=== PATIENT | male | born 1990 | race Caucasian/White ===

== ENCOUNTER 2021-03-18 11:01 | Emergency (ER) | payer OTHER, BC, SELFPAY ==
--- NOTE | ~2021-03-18 | CT_ITS ---
EXAMINATION: CT ABDOMEN AND PELVIS WITH CONTRAST CLINICAL INFORMATION: Lower abdominal pain radiating to right testicle COMPARISON: None TECHNIQUE: Multidetector volumetric images were obtained from the superior aspect of the liver through the pubic symphysis following administration 85 mL of Omnipaque 350 intravenous contrast. Sagittal and coronal reformatted images were obtained on the technologist's workstation. Oral contrast: No This CT examination was performed using dose optimization techniques as appropriate, variously including the following: *Automated exposure control *Adjustment of mA and/or kV according to patient size (this includes techniques or standardized protocols for targeted exams where dose is matched to indication/reason for exam; i.e. extremities or head) *Use of iterative reconstruction technique DLP: 770 mGy-cm FINDINGS: LUNG BASES: The visualized lung bases are unremarkable. No pleural or pericardial effusion. LIVER, GALLBLADDER, AND BILIARY TREE: There is an 8 mm low-density lesion seen within segment 8 of the liver on image 13 of 91 in series #3. No intrahepatic bile duct dilatation is identified. The portal vein is patent. The gallbladder is unremarkable with no evidence of radiopaque gallstones, gallbladder wall thickening, or obvious pericholecystic inflammatory changes. PANCREAS: Unremarkable. SPLEEN: Unremarkable. ADRENAL GLANDS: Unremarkable. KIDNEYS AND URETERS: The kidneys are normal in size, shape, and attenuation. No hydronephrosis, hydroureter, or calculi seen. No perinephric stranding. There are multiple bilateral small cortical cysts present. BLADDER: Decompressed. No calculi. GASTROINTESTINAL TRACT: No dilated loops of large or small bowel evident. No free air or free fluid. No evidence of acute diverticulitis. The appendix appears unremarkable. ABDOMINAL WALL: No significant hernia is appreciated. LYMPH NODES: Unremarkable VASCULAR: Unremarkable. PELVIC VISCERA: Unremarkable. OSSEOUS STRUCTURES: No suspicious destructive bony lesions identified. There is a calcified posterior disc bulge L5-S1. CT/CT abdomen pelvis w con IMPRESSION: No evidence of obstructive uropathy. No evidence of acute appendicitis. No suspicious region of inflammation to explain patient's symptoms seen.
--- NOTE | ~2021-03-18 | US_ITS ---
EXAMINATION: US SCROTUM CLINICAL INFORMATION: Right testicular pain. COMPARISON: None TECHNIQUE: A sonogram of the scrotum was performed assessing minaya-scale appearance and color Doppler flow. Spectral Doppler analysis of the arterial and venous flow were performed in the testes bilaterally. FINDINGS: RIGHT: Right testicle measures 3.6 x 1.6 x 2.4 cm, volume 7.2 mL. No focal testicular parenchymal lesions are visualized. Spectral Doppler analysis of the arterial and venous flow is normal in the right testis. Right epididymal head is normal in size. No right hydrocele or varicocele is seen. Right epididymal Doppler flow is normal. LEFT: Left testicle measures 3.5 x 1.8 x 2.2 cm, volume 7.3 mL. No focal testicular parenchymal lesions are visualized. Spectral Doppler analysis of the arterial and venous flow is normal in the left testis. Left epididymal head is normal in size. No left hydrocele or varicocele is seen. Left epididymal Doppler flow is normal. US/US scrotum doppler IMPRESSION: Normal ultrasound and Doppler scrotum exam.
[2021-03-18 11:06] VITALS: BP 138/56; PULSE 61; RESP 18; TEMP 35.8; O2SAT 98
[2021-03-18 11:18] VITALS: BP 119/68; PULSE 59; RESP 15; TEMP 36.6; O2SAT 98; BMI 32.5
[2021-03-18 11:48] LABS: MANUAL DIFF FLAG NO
[2021-03-18 11:51] LABS: Basophils Percent Auto 0.4 % (0-2); Eosinophils Absolute Auto 0.2 X10*3/uL (0.0-0.4); Eosinophils Percent Auto 2.8 % (0-4); Hematocrit 42.6 % (42-52); Hemoglobin 14.2 g/dl (14.0-18.0); Imm Gran Abs Auto 0.02 X10*3/uL (0.00-0.03); Imm Gran Pct Auto 0.2 % (0.0-0.4); Lymphocytes Absolute Auto 2.8 X10*3/uL (1.2-4.9); Lymphocytes Percent Auto 32.4 % (20-40); Mean Corpuscular HGB Conc 33.3 g/dl (31.0-36.0); Mean Corpuscular Hemoglobin 28.5 pg (27.0-33.0); Mean Corpuscular Volume 85.4 fL (80-98); Mean Platelet Volume 10.4 fL (9.4-12.4); Monocytes Absolute Auto 0.6 X10*3/uL (0.1-1.2); Monocytes Percent Auto 6.4 % (2-11); Neutrophils Percent Auto 57.8 % (45-73); Platelet Count 218 X10*3/uL (160-400); Red Blood Count 4.99 X10*6/uL (4.60-5.80); Red Cell Distribution Width 12.4 % (11.0-16.0); White Blood Count 8.6 X10*3/uL (4.8-10.8)
[2021-03-18 11:55] LABS: Glucose Urine UA NEG (NEG); Leukocyte Esterase Urine NEG (NEG); Nitrite Urine NEG (NEG); Urine Blood NEG (NEG); Urine Ketones NEG (NEG); Urine Protein NEG (NEG-TRACE)
[2021-03-18 11:57] LABS: Appearance Urine CLEAR; Color Urine YELLOW
[2021-03-18 12:16] LABS: Anion Gap 14 (12-20); Blood Urea Nitrogen 6 mg/dL (9-16); Calcium 9.1 mg/dL (8.4-10.2); Carbon Dioxide 23 mmol/L (22-29); Chloride 106 mmol/L (96-108); Creatinine Clr Calc Pharmacy 175.7; Estimated Glomerular Filt Rate > 60; Glucose Random 94 mg/dL (60-115); Potassium 3.9 mmol/L (3.3-5.1); Sodium 139 mmol/L (135-145)
[2021-03-18 12:56] VITALS: BP 121/67; PULSE 54; RESP 18; TEMP 36.6; O2SAT 99
[2021-03-18] MEDS: iohexoL 350 MG/ML 100 ML INFUS..BTL 85 ML IV (13:19)
--- NOTE | 2021-03-18 13:19 | ED_ITS ---
HPI - Abdominal Pain General Chief Complaint: Abdominal Pain Stated Complaint: abd pain Time Seen by Provider: 03/18/21 11:46 Source: patient Mode of arrival: ambulatory Limitations: no limitations History of Present Illness HPI narrative: 30-year-old male with no significant past medical or surgical history presents to the ED with complaints of suprapubic abdominal pain that started last night radiated to his right testicle. He reports it is worse when he walks or cough. Patient denies any fevers, nausea/vomiting, back pain, dysuria, hematuria, abnormal penile discharge diarrhea or constipation. Patient denies any injuries. Patient denies any other symptoms complaints or concerns at this time. MD elicited complaint: abdominal pain Pertinent past history: none Onset (ago): day(s) (2 days) Pain Consistency: constant Location: suprapubic Severity: moderate Quality: aching Radiation: other (Right testicle) Exacerbating factors: movement and other (Walking/coughing any type of movement) Relieving factors: rest Associated symptoms: denies other symptoms Related Data Previous Rx's Medication Instructions Recorded cyclobenzaprine 10 mg PO Q8H #10 tab 03/18/21 naproxen 500 mg PO BID PRN #10 tab 03/18/21 oxycodone 5 mg PO BID PRN #10 tab 03/18/21 Allergies Allergy/AdvReac Type Severity Reaction Status Date / Time No Known Allergies Allergy Verified 03/18/21 12:01 Review of Systems Review of Systems Constitutional : No Weight loss, No Fever, No Chills, No Night Sweats, No Fatigue, NoMalaise ENT/Mouth: No ear pain, No sore throat, No Difficulty swallowing Cardiovascular : No Chest Pain, No SOB, No Dyspnea on Exertion, No Orthopnea, NoEdema, No Palpitations Respiratory : No Cough, No Sputum, No Wheezing, No Dyspnea Gastrointestinal : Positive suprapubic abdominal pain, No Nausea, No Vomiting, No Diarrhea, No Hematochezia, No Melena Genitourinary : Positive testicular pain right-sided, No irregular bleeding, No Dysuria, No Urinary Frequency, No Hematuria,No Urinary Incontinence, No Urgency, No Flank Pain Musculoskeletal : No joint pain, No Myalgias, No Joint Swelling Skin : No Skin Lesions, No rash Neuro : No Weakness, No Numbness, No Paresthesias, No Loss of Consciousness, NoDizziness, No Headache Psych : No Social Issues, Heme/Lymph: No Bruising, No Bleeding,No Lymphadenopathy Endocrine : No Polyuria, No Polydipsia, No Temperature Intolerance PATIENT DENIES ANY THOUGHTS OF STDS Yes all other systems are reviewed and are negative Physical Exam Vital Signs: Vital Signs: Last Vital Signs Temp 97.8 F 03/18/21 12:56 Pulse 54 03/18/21 12:56 Resp 18 03/18/21 12:56 BP 121/67 03/18/21 12:56 Pulse Ox 99 03/18/21 12:56 Body Mass Index 32.5 vital signs have been reviewed as normal and appeared to be correct. Blood pressure normal. Heart rate normal. Respiration rate normal. Temperature normal. Oxygen saturation normal. Appearance: Alert. Oriented X3. No acute distress. Head: Normal external exam. Normocephalic. Atraumatic. Eyes: PERRLA. EOMI. Conjunctiva and sclera normal. Eyelids normal. ENT: Pharynx normal. Uvula midline. Moist mucous membranes. Neck: Normal inspection. Neck supple. FROM. No adenopathy. Thyroid Normal. No meningeal signs. No neck mass noted. CVS: Normal heart rate and rhythm. Heart sound normal. No murmurs noted. Pulses normal throughout. Respiratory: No respiratory distress. Painless inspiration. Breath sounds normal. No wheezes/rales/rhonchi noted. Chest nontender. No accessory muscle usage noted or decreased air movement noted. Abdomen: Soft and nontender. Bowel sounds normal in all 4 quadrants. No distention noted. No organomegaly noted. No visible injury noted. : Chaperoned by SHEEBA Benitez. Normal external exam. No ecchymosis/edema/erythema. No hernia noted. No inguinal lymphadenopathy noted. No lacerations/lesions/induration or tenderness noted. Normal penis. No Condyloma noted. No ecchymosis/erythema/swelling/edematous/mass/nodule/papules/pustules/vesicles. Not consistent with paraphimosis or phimosis. No ulcerations or lesions noted. The meatus is normal. No meatal discharge noted. No blood at the meatus. The scrotum is normal. Cremasteric reflex absent. No ecchymosis/edematous/erythema noted. Testicles are both descended bilaterally. No hydrocele noted. No inguinal hernia noted. No scrotal mass/swelling noted. No ulcerations or va ricocele. Testicles appear normal. They lie normal. Epididymides normal. No blue dot sign. Testicles are not enlarged. No epididymal induration/mass/tenderness. No testicular mass noted. No testicular swelling/tenderness. No high-riding testicle noted. No testicular atrophy noted. Back: No CVA tenderness. Full range of motion noted. Skin: Skin warm and dry. Normal skin color. Normal skin turgor. No rashes/lesions/lacerations noted. Extremities: Extremities exhibit normal range of motion. Extremities nontender. Neuro: Oriented X 3. No motor deficit. No sensory deficit. Reflexes normal. Course Course Course Narrative: 11:35am - 30-year-old male presents to the ED with complaints of suprapubic abdominal pain that started last night radiated to his right testicle. He reports it is worse when he walks or cough. Plan: Labs, UA, gonorrhea chlamydia urine, scrotal/Doppler ultrasound and CT scan of abdomen pelvis with IV contrast. Provide 5 mg oxycodone for pain and re-evaluate. MDM - Abdominal Pain Medical Records Attestation: I reviewed the patient's medical records. Lab Data Attestation: I reviewed the patient's lab results. Result diagrams: 03/18/21 11:44 03/18/21 11:43 Labs: Lab Results 03/18/21 03/18/21 03/18/21 Range/Units 11:43 11:44 11:44 WBC 8.6 (4.8-10.8) X10*3/uL RBC 4.99 (4.60-5.80) X10*6/uL Hgb 14.2 (14.0-18.0) g/dl Hct 42.6 (42-52) % MCV 85.4 (80-98) fL MCH 28.5 (27.0-33.0) pg MCHC 33.3 (31.0-36.0) g/dl RDW 12.4 (11.0-16.0) % Plt Count 218 (160-400) X10*3/uL MPV 10.4 (9.4-12.4) fL Immature Gran % (Auto) 0.2 (0.0-0.4) % Neut % (Auto) 57.8 (45-73) % Lymph % (Auto) 32.4 (20-40) % [place] % (Auto) 6.4 (2-11) % Eos % (Auto) 2.8 (0-4) % Baso % (Auto) 0.4 (0-2) % Lymph # (Auto) 2.8 (1.2-4.9) X10*3/uL [place] # (Auto) 0.6 (0.1-1.2) X10*3/uL Eos # (Auto) 0.2 (0.0-0.4) X10*3/uL Baso # (Auto) 0.0 (0.0-0.2) X10*3/uL Abs Immat Gran (auto) 0.02 (0.00-0.03) X10*3/uL Absolute Neuts (auto) 5.0 (2.0-8.3) X10*3/uL Absolute Nucleated RBC 0.000 (0.0-0.012) X10*3/uL Nucleated RBC % (auto) 0.0 (0.0-0.2) /100WBC Sodium 139 (135-145) mmol/L Potassium 3.9 (3.3-5.1) mmol/L Chloride 106 (96-108) mmol/L Carbon Dioxide 23 (22-29) mmol/L Anion Gap 14 (12-20) BUN 6 L (9-16) mg/dL Creatinine 0.71 (0.5-1.4) mg/dL Estim Creat Clear Calc 175.7 Estimated GFR > 60 Random Glucose 94 (60-115) mg/dL Calcium 9.1 (8.4-10.2) mg/dL Urine Color YELLOW Urine Appearance CLEAR Urine pH 7.0 (5.0-8.0) Ur Specific [place] 1.010 (1.005-1.025) Urine Protein NEG (NEG-TRACE) MG/DL Urine Glucose (UA) NEG (NEG) MG/DL Urine Ketones NEG (NEG) MG/DL Urine Blood NEG (NEG) Urine Nitrite NEG (NEG) Ur Leukocyte Esterase NEG (NEG) Imaging Data CT scan abdomen pelvis with IV contrast: Attestation: I personally reviewed and interpreted this imaging study as follows: Radiologist's impression: FINDINGS: LUNG BASES: The visualized lung bases are unremarkable. No pleural or pericardial effusion. LIVER, GALLBLADDER, AND BILIARY TREE: There is an 8 mm low-density lesion seen within segment 8 of the liver on image 13 of 91 in series #3. No intrahepatic bile duct dilatation is identified. The portal vein is patent. The gallbladder is unremarkable with no evidence of radiopaque gallstones, gallbladder wall thickening, or obvious pericholecystic inflammatory changes. PANCREAS: Unremarkable. SPLEEN: Unremarkable. ADRENAL GLANDS: Unremarkable. KIDNEYS AND URETERS: The kidneys are normal in size, shape, and attenuation. No hydronephrosis, hydroureter, or calculi seen. No perinephric stranding. There are multiple bilateral small cortical cysts present. BLADDER: Decompressed. No calculi. GASTROINTESTINAL TRACT: No dilated loops of large or small bowel evident. No free air or free fluid. No evidence of acute diverticulitis. The appendix appears unremarkable. ABDOMINAL WALL: No significant hernia is appreciated. LYMPH NODES: Unremarkable VASCULAR: Unremarkable. PELVIC VISCERA: Unremarkable. OSSEOUS STRUCTURES: No suspicious destructive bony lesions identified. There is a calcified posterior disc bulge L5-S1. CT/CT abdomen pelvis w con IMPRESSION: No evidence of obstructive uropathy. No evidence of acute appendicitis. No suspicious region of inflammation to explain patient's symptoms seen. Right testicular/Doppler ultrasound: Attestation: I personally reviewed and interpreted this imaging study as follows: Radiologist's impression: FINDINGS: RIGHT: Right testicle measures 3.6 x 1.6 x 2.4 cm, volume 7.2 mL. No focal testicular parenchymal lesions are visualized. Spectral Doppler analysis of the arterial and venous flow is normal in the right testis. Right epididymal head is normal in size. No right hydrocele or varicocele is seen. Right epididymal Doppler flow is normal. LEFT: Left testicle measures 3.5 x 1.8 x 2.2 cm, volume 7.3 mL. No focal testicular parenchymal lesions are visualized. Spectral Doppler analysis of the arterial and venous flow is normal in the left testis. Left epididymal head is normal in size. No left hydrocele or varicocele is seen. Left epididymal Doppler flow is normal. US/US scrotum doppler IMPRESSION: Normal ultrasound and Doppler scrotum exam. Discharge Plan Discharge Clinical Impression: Abdominal pain, Abdominal muscle strain Patient Disposition: Home, Self-Care Instructions: Muscle Strain (ED), Abdominal Pain (ED) Additional Instructions: You have pending lab results if any are positive you will be contacted. Prescriptions: New cyclobenzaprine 10 mg tablet 10 mg PO Q8H Qty: 10 RF: 0 naproxen 500 mg tablet 500 mg PO BID PRN (Reason: pain) Qty: 10 RF: 0 oxycodone 5 mg tablet 5 mg PO BID PRN (Reason: pain) Qty: 10 RF: 0 Referrals: Physician,Unknown [Primary Care Provider] - 2 days (your pcp) Stand Alone Forms: Work/School Release Print Language: Sami [facility] Past Medical History Attestation statement: The following information was validated with the patient. Medical History Healthy adult Social History Social History Alcohol intake: current Alcohol intake frequency: holidays/special occasions only Patient Tobacco Use Status: Never used Tobacco Use of substances other than those prescribed or required for medical reasons: No Advance Directives: Yes Advance Directives Information Provided: Yes Advance Directives on File: No
[2021-03-18] MEDS: oxyCODONE HCl Immed Release 5 MG TABLET PO (13:25)
[2021-03-18 17:22] LABS: CT PCR NOT DETECTED (Not Detect.); NG PCR NOT DETECTED (Not Detect.)
== END 2021-03-18 14:25 | disposition home or self-care (01) ==
PROVIDERS: Physician Assistant Medical; Emergency Provider Emergency Medicine Emergency Medical Services
DX: R10.30 Lower abdominal pain, unspecified (principal); S39.011A Strain of muscle, fascia and tendon of abdomen, initial encounter; N50.811 Right testicular pain; X58.XXXA Exposure to other specified factors, initial encounter; Y93.9 Activity, unspecified; Y92.9 Unspecified place or not applicable; Y99.9 Unspecified external cause status
CPT/HCPCS: 36415; 74177; 80048; 81003; 85025; 87491; 87591; 93975; 99284; Q9967

== ENCOUNTER 2025-08-26 09:16 | Emergency (ER) | payer BC, SELFPAY ==
--- NOTE | ~2025-08-26 | CT_ITS ---
CLINICAL HISTORY: RLQ pain, concern for appy CT abdomen and pelvis with contrast Comparison: None provided Findings: No consolidation or effusion. Reference coronal 44, the appendix does measure up to 8 mm in diameter however there is no periappendiceal stranding. There is borderline thickening of the distal transverse and descending colon. No pneumatosis, free air, free fluid, abscess or significant adenopathy. Mild fecal retention within the right colon. The liver, gallbladder, spleen, adrenal glands, pancreas and left kidney are unremarkable. There is mild right hydroureteronephrosis related to a calculus within the distal right ureter, measuring up to 5.5 mm reference also coronal 44 and axial 64 No acute osseous finding. Impression: There is a 5.5 mm calculus within the distal right ureter with mild right hydroureteronephrosis. The appendix measures 8 mm in diameter which is mildly prominent; however, there is no stranding about the appendix to confirm or support appendicitis. There is also borderline thickening of the descending colon, nonspecific. Correlation for mild colitis. This document has been electronically signed by: Arjun Carbajal MD on 08/26/2025 11:04:00
--- NOTE | 2025-08-26 09:20 | ED_ITS ---
HPI - General Adult General Chief complaint: Abdominal Pain Stated complaint: BLOOD IN URINE ABD PAIN Time Seen by Provider: 08/26/25 09:19 Source: patient and family (patient's mother) Mode of arrival: ambulatory Limitations: no limitations History of Present Illness ED Provider: Lissa Cleary PA-C HPI narrative: Patient is a 35 year old assigned male at with a history of kidney stones presenting to the emergency department today with right lower quadrant abdominal pain. Patient states that he woke up this morning with severe right sided abdominal pain that is going into his groin. Patient states that this feels worse than a usual kidney stone. Patient states that he feels nauseous but he has not had any episodes of vomiting. Patient denies any other complaints at this time. Relieving factors: none Exacerbating factors: none Associated symptoms: nausea/vomiting Treatments prior to arrival: none Related Data Previous Rx's ?Medication ?Instructions ?Recorded cyclobenzaprine 10 mg tablet 10 mg PO Q8H Muscle spasm #10 tabs 03/18/21 naproxen 500 mg tablet 500 mg PO BID PRN pain #10 t abs 03/18/21 oxycodone 5 mg tablet 5 mg PO BID PRN pain #10 tab s 03/18/21 naproxen 500 mg tablet 500 mg PO BID 7 days #14 tab s 08/26/25 prednisone 20 mg tablet 20 mg PO DAILY 5 days #5 tab s 08/26/25 tamsulosin 0.4 mg capsule 0.4 mg PO DAILY #7 caps 08/06 11/29 Allergies Allergy/AdvReac Type Severity Reaction Status Date / Time No Known Allergies Allergy Verified 08/26/25 09:24 Review of Systems 2 Constitutional: Constitutional: Reports as per HPI Eyes: Eyes: Reports as per HPI ENT: Reports as per HPI Cardiovascular: Cardiovascular: Reports as per HPI Respiratory: Respiratory: Reports as per HPI Gastrointestinal: Gastrointestinal: Reports as per HPI Genitourinary: Genitourinary: Reports as per HPI Musculoskeletal: Musculoskeletal: Reports as per HPI Integumentary/Breasts: Skin/Breast: Reports as per HPI Neurologic: Reports as per HPI Psychiatric: Psychiatric: Reports as per HPI Endocrine: Endocrine: Reports as per HPI Hematologic/Lymphatic: Hematologic/Lymphatic: Reports as per HPI Allergic/Immunologic: Allergic/Immunologic: Reports as per HPI [facility] Past Medical History Attestation statement: The following information was validated with the patient. (all information validated with the patient's mother) Source: old records reviewed, obtained from family (patient's mother provided additional history and confirmed the history provided by the patient) and nursing notes reviewed Medical History Healthy adult Social History Social History Alcohol intake: current Alcohol intake frequency: holidays/special occasions only Patient Tobacco Use Status: Never used Tobacco Smoked in Last 30 Days: No Use of substances other than those prescribed or required for medical reasons: No Advance Directives: No Advance Directives Information Provided: No Do you have a plan to hurt others: No Plan Physical Exam ED Vital Signs: Vital Signs - 24 hr 08/26/25 09:22 08/26/25 09:28 08/26/25 10:38 Temperature 97.8 F 97.8 F 97.8 F Pulse Rate 61 61 58 Respiratory Rate 20 20 18 Blood Pressure 120/85 120/85 124/62 Pulse Oximetry 98 98 98 Oxygen Delivery Method Room Air Room Air Room Air BMI result Body Mass Index 33.5 Const General: cooperative, no acute distress, alert and awake Nutritional Appearance: well nourished Orientation/consciousness: patient oriented x3 HENMT Head: Yes normal to inspection and Yes atraumatic Ears: hearing grossly normal bilaterally and external ears normal General nose exam: Normal external nose present, no nasal discharge noted and no epistaxis Face and sinus: Yes normal facial exam, No abrasion and No laceration Mouth: Normal oral and palatal mucosa present, no drooling and no muffled voice Eyes General: appearance normal, both eyes and all related structures Periorbital: periorbital findings normal Eyelids: Yes eyelids normal Conjunctivae: conjunctivae normal Pupils: Equal, round and reactive pupils present EOM: EOMs intact bilaterally Neck Neck: Yes normal visual inspection and Yes full ROM Resp Effort & Inspection: normal respiratory effort and able to speak in complete sentences GI Palpation (GI): Soft to palpation, not firm, Tenderness to palpation present (GI) in the RLQ, no guarding and not rigid Neuro General: patient oriented x3, moves all extremities and CN's II-XI intact bilaterally Cranial nerves: Yes Equal, round and reactive pupils present Cognition (Neuro): normal cognition Extrem General: Yes normal to inspection, Yes full ROM and Yes capillary refill normal Psych Appearance: grossly normal Mental Status: mental status grossly normal Affect: normal affect Attitude: cooperative Thought process: Normal thought process present Thought content: Normal thought content present Insight: Good insight present (Psych) Medications Administered Discontinued Medications Generic Name Dose Route Start Last Admin Trade Name Tungq PRN Reason Stop Dose Admin Sodium Chloride 1,000 mls @ 999 mls/hr 08/26/25 10:45 08/26/25 10:45 Ns IV 08/26/25 11:45 999 mls/hr .Q1H1M DORA Administration Acetaminophen 1,000 mg in 100 mls @ 400 mls/hr 08/26/25 11:41 08/26/25 11:53 Ofirmev IV 08/26/25 11:55 400 mls/hr ONCE ONE Administration Iohexol 100 ml 08/26/25 10:16 08/26/25 10:16 Iohexol 350 Mg/Ml 100 Ml Infus..Btl IV 08/26/25 10:17 85 ml ONCE ONE Administration Ketorolac Tromethamine 15 mg 08/26/25 09:36 08/26/25 09:42 Ketorolac Tromethamine 15 Mg/Ml Vial IVPUSH 08/26/25 09:37 15 mg ONCE ONE Administration Morphine Sulfate 4 mg 08/26/25 09:20 08/26/25 09:30 Morphine Sulfate 4 Mg/Ml Cartridge IVPUSH 08/26/25 09:21 4 mg ONCE ONE Administration Protocol Ondansetron HCl 4 mg 08/26/25 09:20 08/26/25 09:30 Ondansetron Hcl 4 Mg/2 Ml Vial IVPUSH 08/26/25 09:21 4 mg ONCE ONE Administration Prednisone 10 mg 08/26/25 10:41 08/26/25 10:46 Prednisone 10 Mg Tablet PO 08/26/25 10:42 10 mg ONCE ONE Administration Tamsulosin HCl 0.4 mg 08/26/25 10:41 08/26/25 10:46 Tamsulosin Hcl 0.4 Mg Capsule PO 08/26/25 10:42 0.4 mg ONCE ONE Administration Medical Decision Making Medical Decision Making MDM Narrative: Patient is a 35 year old assigned male at with a history of kidney stones presenting to the emergency department today with right lower quadrant abdominal pain. Patient's physical exam was as noted in the physical exam portion of this note. Patient's blood work showed an elevated WBC of 11.6 with a left shift of 75.7 but otherwise unremarkable. Patient's urine showed no acute infectious process. Patient's CT abd/pelvis showed a 5.5mm kidney stone in the distal right ureter with mild right hydroureternephrosis as well as a mildly dilated appendix of 8mm with no surrounding stranding. I spoke with Dr. Osborne, the urologist automobile contract clerk, who recommended prescribing the patient 20mg of PO prednisone for 5 days with flomax, giving strict return precuations, and following up on an outpatient basis. I spoke with Dr. Clifford, the general surgeon automobile contract clerk, about the appendix findings on the CT scan and she stated there was no concern for acute appendicitis at this time and to follow Dr. Osborne's suggestions. Patient received IV Morphine, Zofran, Tylenol, and Toradol which, upon re- evaluation, he stated it helped his symptoms some. I explained my physical exam findings as well as all test results to the patient and the patient's mother. I answered all questions asked by the patient and the patient's mother. I stressed the importance of the patient taking his medication as directed (either prescribed or as the over the counter packaging recommends). I stressed the importance of the patient following up with his primary care provider and a urologist. I stressed the importance of the patient returning to the emergency department immediately if his symptoms were to worsen or if he were to develop any dizziness, shortness of breath, difficulty breathing, chest pain, blurry vision, loss of vision, nausea, vomiting, abdominal pain, fever, chills, back pain, or any other complaints. Patient and the patient's mother verbalized agreement and understanding with this treatment plan and discharge. Differential Diagnosis Differential Diagnoses: The differential diagnosis associated with the presentation includes Kidney stone Appendicitis Abdominal pain Diverticulitis Admission/Observation Consideration of admission/observation: Escalation of care including admission/observation considered Patient would have been admitted to the hospital had his work up had any findings where hospital admission was appropriate and his clinical presentation warranted hospital admission. Consult Healthcare Provider Management of the patient was discussed with: Machine Sorter (I spoke with the general surgeon and the urologist automobile contract clerk as noted in the [facility] Rationale portion of this note. ) Lab Data [facility] Lab Attestation statement: I reviewed the patient's lab results. My interpretation of these results are in the MDM Rationale portion of this note. 08/26/25 09:34 08/26/25 09:34 Labs: Lab Results 08/26/25 08/26/25 Range/Units 09:34 11:38 WBC 11.6 H (4.8-10.8) X10*3/uL RBC 5.24 (4.60-5.80) X10*6/uL Hgb 14.8 (14.0-18.0) g/dl Hct 43.5 (42.0-52.0) % MCV 83.0 (80.0-98.0) fL MCH 28.2 (27.0-33.0) pg MCHC 34.0 (31.0-36.0) g/dl RDW 12.3 (11.0-16.0) % Plt Count 243 (160-400) X10*3/uL MPV 10.0 (9.4-12.4) fL Immature Gran % (Auto) 0.4 (0.0-0.4) % Neut % (Auto) 75.7 H (45-73) % Lymph % (Auto) 17.8 L (20-40) % [place] % (Auto) 4.7 (2-11) % Eos % (Auto) 1.0 (0-4) % Baso % (Auto) 0.4 (0-2) % Lymph # (Auto) 2.1 (1.2-4.9) X10*3/uL [place] # (Auto) 0.5 (0.1-1.2) X10*3/uL Eos # (Auto) 0.1 (0.0-0.4) X10*3/uL Baso # (Auto) 0.1 (0.0-0.2) X10*3/uL Abs Immat Gran (auto) 0.05 H (0.00-0.03) X10*3/uL Absolute Neuts (auto) 8.7 H (2.0-8.3) x10*3/uL Absolute Nucleated RBC 0.000 (0.0-0.012) X10*3/uL Nucleated RBC % (auto) 0.0 (0.0-0.2) /100WBC Sodium 140 (135-145) mmol/L Potassium 3.8 (3.3-5.1) mmol/L Chloride 104 (96-108) mmol/L Carbon Dioxide 25 (22-29) mmol/L Anion Gap 15 (12-20) BUN 10 (9-16) mg/dL Creatinine 0.86 (0.5-1.4) mg/dL Estim Creat Clear Calc 140.4 Estimated GFR > 60 Random Glucose 174 H (60-115) mg/dL Calcium 9.3 (8.4-10.2) mg/dL Total Bilirubin 0.5 (0.0-1.0) mg/dL AST 24 (5-37) U/L ALT 21 (0-40) U/L Alkaline Phosphatase 78 (39-117) U/L Total Protein 7.9 (6.5-8.0) g/dL Albumin 4.8 (3.5-5.0) g/dL Urine Color Yellow Urine Appearance Clear Urine pH 6.5 (5.0-9.0) Ur Specific [place] >= 1.030 H (1.005-1.025) Urine Protein 30 (1+) H (Neg-Trace) mg/dL Urine Glucose (UA) Negative (Negative) mg/dL Urine Ketones Negative (Negative) mg/dL Urine Blood Large (3+) H (Negative) Urine Nitrite Negative (Negative) Ur Leukocyte Esterase Negative (Negative) Urine RBC >20 H (0-2) /HPF Urine WBC 0-5 (0-5) /HPF Ur Squamous Epith Cells 0-2 (0-2) /HPF Urine Bacteria None Seen (None Seen) Hyaline Casts 0-2 (0-2) /LPF Independent Interpretation I performed an independent interpretation of an: CT Scan Interpretation: My interpretation is in agreement with the radiologist's impression of this imaging study as written below. CLINICAL HISTORY: RLQ pain, concern for appy CT abdomen and pelvis with contrast Comparison: None provided Findings: No consolidation or effusion. Reference coronal 44, the appendix does measure up to 8 mm in diameter however there is no periappendiceal stranding. There is borderline thickening of the distal transverse and descending colon. No pneumatosis, free air, free fluid, abscess or significant adenopathy. Mild fecal retention within the right colon. The liver, gallbladder, spleen, adrenal glands, pancreas and left kidney are unremarkable. There is mild right hydroureteronephrosis related to a calculus within the distal right ureter, measuring up to 5.5 mm reference also coronal 44 and axial 64 No acute osseous finding. Impression: There is a 5.5 mm calculus within the distal right ureter with mild right hydroureteronephrosis. The appendix measures 8 mm in diameter which is mildly prominent; however, there is no stranding about the appendix to confirm or support appendicitis. There is also borderline thickening of the descending colon, nonspecific. Correlation for mild colitis. This document has been electronically signed by: Arjun Carbajal MD on 08/26/2025 11:04:00 Dictated By: Arjun Carbajal MD Signed By: Electronically signed by Arjun Carbajal MD 08/26/25 1101 Radiology Impression Discussion of test interpretation with radiology: I have reviewed the radiologist's reading. Independent Historian Clinical information obtained from an independent historian. History obtained from or confirmed by: Parent (patient's mother provided additional history and confirmed the history provided by the patient. ) Prescription Management I considered prescription management with: Pain Medication (patient prescribed pain medication) Critical Care Time Critical Care Time Critical Care Time: Yes Total Critical Care Time: 32 Attestation: I spent 32 minutes of Critical Care Time with this patient. This does not include time spent on separately reported billable procedures. Discharge Plan Discharge Clinical Impression: Kidney stone Patient Disposition: Home, Self-Care Instructions: Kidney Stones (ED) Additional Instructions: Take your medication as prescribed. Follow up with the urologist team. IF you are prescribed home medications and/or you are taking over the counter medications at home - it is very important you continue to do so as prescribed / directed unless told otherwise by a healthcare provider. Follow up with your primary care provider. Do your best to stay well hydrated and rest. Return to the emergency department immediately if your symptoms worsen or if you develop any numbness, tingling, dizziness, shortness of breath, difficulty breathing, chest pain, blurry vision, loss of vision, nausea, vomiting, abdominal pain, fever, chills, back pain, or any other complaints. L If you do not have a primary care provider - call any of the below numbers to establish and follow up with a primary care provider. [facility] [place] [phone] [place] [address], [address] [facility] ([address]) [phone], [address] [place], [address] [facility] ([address]) [phone] [address] [facility] [address], [address] [place], [address] [facility] ([place]) [phone] [place] [address], [address] [place], [address] [facility] [phone] [place] [place] [address], [address] Please see the information below about our Patient Portal. If you are not yet enrolled in the [facility] Patient Portal, you will receive an enrollment email invitation following your visit to any [facility] setting. You may also self-enroll in the Patient Portal by visiting our website: [email or web address] The following information is required to access the Patient Portal: - Your [facility] Medical Record Number - Your personal home email address (must match what is in your electronic medical record, Registration staff can assist with this) - Name - Date of Capabilities of the Patient Portal: - Message some providers - View upcoming appointments - Access your health summary, medical history, and visit history - View current conditions and allergies - View procedure and lab results - View your medications, including guidelines, side effects, and precautions - Complete pre-appointment questionnaires requested by your provider - Ready summary reports of your office visits and procedures To access the Patient Portal Mobile [employer], follow these directions: - Search [email or web address] in the [employer] Store or [employer] Store - Download the Srinivas - Search for [facility] - Enter your login/password Prescriptions: New prednisone 20 mg tablet 20 mg PO DAILY 5 Days Qty: 5 0RF tamsulosin 0.4 mg capsule 0.4 mg PO DAILY Qty: 7 0RF naproxen 500 mg tablet 500 mg PO BID 7 Days Qty: 14 0RF No Action cyclobenzaprine 10 mg tablet 10 mg PO Q8H Qty: 10 0RF naproxen 500 mg tablet 500 mg PO BID PRN (Reason: pain) Qty: 10 0RF oxycodone 5 mg tablet 5 mg PO BID PRN (Reason: pain) Qty: 10 0RF Referrals: [facility] [Provider Group, Urology] Referral Note: [facility] will call you within 2 business days to schedule your follow up appointment. If you have NOT received a call within 2 business days, please call the number provided. Stand Alone Forms: Work/School Release Print Language: Panamanian
[2025-08-26 09:22] VITALS: BP 120/85; BP 124/82; PULSE 61; PULSE 87; RESP 20; TEMP 36.6; O2SAT 98; BMI 33.5
[2025-08-26 09:28] VITALS: BP 120/85; PULSE 61; RESP 20; TEMP 36.6; O2SAT 98
--- NOTE | 2025-08-26 09:31 | PC.NURSE ---
Patient presents to ED c/o ABD pain in RLQ that radiates to umbilcus and to patients testicles Patient has hx of kidney stones but says this feels different No hx of testicular torsion or epididymitis IV 20G in LAC Patient medicated with zofran and morhpine per DEC VSS and up to date provider in to see patient Plan of care on going
[2025-08-26 09:39] LABS: Hematocrit 43.5 % (42.0-52.0); Hemoglobin 14.8 g/dl (14.0-18.0); Imm Gran Abs Auto 0.05 X10*3/uL (0.00-0.03); Imm Gran Pct Auto 0.4 % (0.0-0.4); Lymphocytes Absolute Auto 2.1 X10*3/uL (1.2-4.9); MANUAL DIFF FLAG NO; Mean Corpuscular HGB Conc 34.0 g/dl (31.0-36.0); Mean Corpuscular Hemoglobin 28.2 pg (27.0-33.0); Mean Corpuscular Volume 83.0 fL (80.0-98.0); NRBC Abs Auto 0.000 X10*3/uL (0.0-0.012); NRBC Pct Auto 0.0 /100WBC (0.0-0.2); Platelet Count 243 X10*3/uL (160-400); Red Blood Count 5.24 X10*6/uL (4.60-5.80); White Blood Count 11.6 X10*3/uL (4.8-10.8)
[2025-08-26 09:54] LABS: Alanine Aminotransferase 21 U/L (0-40); Albumin Level 4.8 g/dL (3.5-5.0); Alkaline Phosphatase 78 U/L (39-117); Anion Gap 15 (12-20); Aspartate Amino Transferase 24 U/L (5-37); Blood Urea Nitrogen 10 mg/dL (9-16); Calcium 9.3 mg/dL (8.4-10.2); Carbon Dioxide 25 mmol/L (22-29); Chloride 104 mmol/L (96-108); Creatinine Clr Calc Pharmacy 140.4; Estimated Glomerular Filt Rate > 60; Potassium 3.8 mmol/L (3.3-5.1); Sodium 140 mmol/L (135-145); Total Protein 7.9 g/dL (6.5-8.0)
[2025-08-26] MEDS: iohexoL 350 MG/ML 100 ML INFUS..BTL IV (10:16)
[2025-08-26 10:38] VITALS: BP 124/62; PULSE 58; RESP 18; TEMP 36.6; O2SAT 98
[2025-08-26 11:45] LABS: Appearance Urine Clear; Glucose Urine UA Negative (Negative); PH 6.5 (5.0-9.0); Specific Gravity - Urine >= 1.030 (1.005-1.025); UMIC TRIGGER UACC YES
[2025-08-26 12:12] VITALS: BP 124/62; PULSE 58; RESP 18; TEMP 36.6; O2SAT 98
== END 2025-08-26 12:12 | disposition home or self-care (01) ==
PROVIDERS: Physician Assistant Medical; Emergency Provider Emergency Medicine Emergency Medical Services
DX: N20.0 Calculus of kidney (principal); Z87.442 Personal history of urinary calculi
CPT/HCPCS: 36415; 74177; 80053; 81001; 85025; 96361; 96374; 96375; 99285; J0131; J1885; J2270; J2405; Q9967

== ENCOUNTER → 2025-08-26 09:20 | Outpatient (BNV) | payer BC, SELFPAY | PROVIDERS: Emergency Provider Emergency Medicine Emergency Medical Services; Visit Provider Radiology Vascular & Interventional Radiology | DX: N13.2 Hydronephrosis with renal and ureteral calculous obstruction (principal) | CPT/HCPCS: 74177 ==